=== PATIENT | female | born 1960 | race Hispanic/Latino ===

== ENCOUNTER 2022-03-28 07:48 | Emergency (ER) | payer OTHER, MEDICARE ==
[~2022-03-28] VITALS: Ht 154.9 cm; Wt 65.8 kg
[2022-03-28 08:29] LABS: BASOPHILS % (AUTO) 0.4 % (0.0-5.0); EOSINOPHILS % (AUTO) 0.7 % (0.0-8.0); HEMATOCRIT 44.3 % (36-48); LYMPHOCYTES % (AUTO) 8.9 % (21.0-51.0); MEAN CORPUSCULAR HEMOGLOBIN 26.1 pg (27.0-33.0); MEAN CORPUSCULAR HGB CONC 31.4 g/dL (32.0-36.0); MEAN CORPUSCULAR VOLUME 83.1 fL (79-99); MONOCYTES % (AUTO) 2.3 % (3.0-13.0); NEUTROPHILS % (AUTO) 87.4 % (40.0-77.0); PLATELET COUNT (AUTO) 320 K/uL (130-400); RED BLOOD CELL COUNT(AUTO) 5.33 MIL/uL (4.00-5.50); RED CELL DISTRIBUTION WIDTH 14.6 % (11.0-15.5); WHITE BLOOD COUNT (AUTO) 15.1 K/uL (4.8-10.8)
[2022-03-28] MEDS ORDERED: KETOROLAC 15MG/ML VIAL (15MG/ML) IV ONE (09:00)
[2022-03-28] MEDS ORDERED: OSELTAMIVIR PHOSPHATE 75 MG CAP PO ONE (09:00)
[2022-03-28] MEDS ORDERED: ACETAMINOPHEN 500 MG TABLET PO ONE (09:00)
[2022-03-28 09:55] LABS: CREATININE 0.7 mg/dL (0.5-1.5); POTASSIUM 3.8 mmol/L (3.5-5.1)
[2022-03-28 10:00] LABS: ALBUMIN 3.1 g/dL (3.5-5.0); TOTAL PROTEIN, SERUM 7.1 g/dL (6.0-8.3)
[2022-03-28] MEDS ORDERED: DEXAMETHASONE SOD PHOSPHATE 4 MG/ML 1ML VIAL IV ONE (10:00)
[2022-03-28] MEDS ORDERED: MORPHINE 2 MG SYG IVP ONE (10:00)
[2022-03-28] MEDS ORDERED: IPRATROPIUM/ALBUTEROL SULFATE 3 ML SOLUTION IH ONE (10:00)
[2022-03-28] MEDS ORDERED: IPRATROPIUM 0.5 MG/2.5 ML INH IH ONE (10:02)
[2022-03-28] MEDS ORDERED: ALBUTEROL 0.083% 2.5 MG/3 ML INH IH ONE (10:02)
[2022-03-28] MEDS ORDERED: OSEL75 PO (11:27)
[2022-03-28] MEDS ORDERED: ACET-2079 PO (11:27)
[2022-03-28 11:30] VITALS: BP 101/58
== END 2022-03-28 11:46 | disposition home or self-care (01) ==
LOC: EDH 07:48
DX: J44.1 Chronic obstructive pulmonary disease with (acute) exacerbation (principal); J10.1 Influenza due to other identified influenza virus with other respiratory manifestations; M19.90 Unspecified osteoarthritis, unspecified site; Z79.1 Long term (current) use of non-steroidal anti-inflammatories (NSAID); Z79.52 Long term (current) use of systemic steroids; Z20.822 Contact with and (suspected) exposure to COVID-19
CPT/HCPCS: 99285; 96374; 71045; 96375; 87635; 84484; 80053; 83880; 85025; 87804 ×2; 36415; 93005; 94640; J1100; C9803; J1885